=== PATIENT | male | born 1970 | race Caucasian/White ===

== ENCOUNTER 2025-03-06 12:06 | Emergency (ER) | payer OTHER, SELFPAY ==
[2025-03-06 12:09] VITALS: BP 137/100
[2025-03-06 12:42] VITALS: BP 137/96; BMI 30.8
[2025-03-06 12:56] LABS: % Basophils 0.4 % (0-2); % Immature Granulocytes 0.2 % (0-0.5); % Lymphocytes 34.1 % (20.5-51.1); % Monocytes 10.1 % (1.7-9.3); % Neutrophils 53.2 % (42.2-75.2); Absolute Eosinophils 0.1 10^3/uL (0-0.7); Absolute Lymphocytes 1.8 10^3/uL (1.2-3.4); Absolute Monocytes 0.5 10^3/uL (0.1-0.6); Absolute Neutrophils 2.9 10^3/uL (1.4-6.5); Hematocrit 46.4 % (39.0-52.0); Hemoglobin 16.1 g/dL (13.0-18.0); Mean Corp Hgb Conc. 34.7 g/dL (33.0-37.0); Mean Corpuscular Hgb 30.3 pg (27.0-31.0); Mean Corpuscular Volume 87.2 fL (80.0-94.0); Mean Platelet Volume 9.1 fL (7.4-10.4); Nucleated Red Blood Cells % 0 % (-); Platelet Count 234 10^3/uL (130-400); Red Blood Cell Count 5.32 10^6/uL (4.70-6.10); Red Cell Dist. Width 12.8 % (11.5-14.5); White Blood Cell Count 5.4 10^3/uL (4.8-10.8)
--- NOTE | 2025-03-06 12:58 | ED.GENMED ---
History of Present Illness
General
Chief Complaint: Abdominal Pain
Source: patient
Exam Limitations: none
Time Seen by Provider: 03/06/25 12:35
Nursing documentation reviewed up to this point in time: agreed with
History of Present Illness
History of Present Illness:
54-year-old male with history of HTN sees is here for trouble moving his bowels. He states he typically has 2-4 daily bowel movements but for the past 5 days, he has not been able to move his bowels unless he takes milk of magnesia and feels like
'there is a big heavy chunk of cheese sitting in my gut.' States his stomach has been gurgling a lot. He denies nausea or vomiting. Denies fever. Has had no problems urinating.
Past History
Past History
ED Past Medical History: HTN
ED Past Surgical History: Appendectomy, Orthopedic (Left knee surgery) and Other (Hernia repair)
Social History
Tobacco: Non-smoker
Alcohol: Occasional
Personal:
Living: with family
Employment: Employed
Family History
Family History: Other (Noncontributory)
Review of Systems
Review of Systems
Allergies reviewed?: Yes
All Other Systems: ROS reviewed and negative except as documented in HPI and ROS
Constitutional: Denies fever
Respiratory: Denies trouble breathing
Cardiac: Denies chest pain
ABD/GI: Reports abdominal pain and other (Having trouble moving his bowels the past 4 days, he states he can only go if he takes milk of magnesia.); Denies nausea, vomiting, bloody stools, black stools or anorexia
: Denies dysuria or difficulty voiding
Musculoskeletal: Reports no symptoms
Skin: Reports no symptoms
Neurological: Reports no symptoms
Phy Exam
Physical Exam
Physical Exam:
GENERAL: No acute distress. A&Ox3.
CONSTITUTIONAL: Afebrile.
EYES: clear, conjunctivae normal
ENMT: moist mucus membranes
RESPIRATORY: Regular respirations, nonlabored, lungs clear.
CARDIOVASCULAR: Regular rate and rhythm, no murmurs, no rubs.
GI: Soft, no significant tenderness, nondistended, normal BS
MUSCULOSKELETAL: Moves with ease. Well perfused.
SKIN: Warm, dry, pink
PSYCH: Normal mood and affect. Well kept, interactive and appropriate
NEUROLOGIC: Awake, alert and oriented. No focal neurological deficits
Course
Orders/Labs/Results
Orders:
Orders
03/06/25 12:45
Complete Blood Count/With Diff Urgent
Comprehensive Metabolic Panel Urgent
Lipase Urgent
03/06/25 12:58
0.9% Sodium Chloride 1000 ml [Nss] 1,000 ml IV BOLUS
03/06/25 13:01
CT Abd/pel Without Iv Or Oral Urgent
Comment:
Reason For Exam: left flank pain
Abnormal Lab Results
03/06/25
12:45
Monocytes % 10.1 H %
(1.7-9.3)
Glucose 111 H mg/dl
(70-99)
Total Bilirubin 1.8 H mg/dl
(0.2-1.3)
ALT 71 H U/L
(0-50)
03/06/25 12:45
03/06/25 12:45
Vital Signs
Initial and Last Documented VS:
Initial Vital Signs
Temp Pulse Resp BP Pulse Ox
98.4 F 95 16 137/100 96
03/06/25 12:09 03/06/25 12:09 03/06/25 12:09 03/06/25 12:09 03/06/25 12:09
Last Documented Vital Signs
Temp Pulse Resp BP Pulse Ox
98.4 F 95 16 126/81 96
03/06/25 12:09 03/06/25 12:09 03/06/25 12:09 03/06/25 15:00 03/06/25 15:30
MDM/Problems Addressed
Differential Diagnosis Includes:
constipation, diverticulitis, obstruction
MDM/Problems Addressed:
54-year-old male with history of HTN sees is here for trouble moving his bowels. He states he typically has 2-4 daily bowel movements but for the past 5 days, he has not been able to move his bowels unless he takes milk of magnesia and feels like
'there is a big heavy chunk of cheese sitting in my gut.' States his stomach has been gurgling a lot. He denies nausea or vomiting. Denies fever. Has had no problems urinating.
Afebrile, NAD
1:50 PM:
CBC normal
CMP mild elevation of bilirubin otherwise normal
CAT scan abdomen pelvis w/o IV or PO contrast radiology report read: IMPRESSION:
No renal, ureteral, or bladder calculus. No obstructive uropathy.
Minor diverticulosis without acute diverticulitis. No bowel obstruction.
No acute inflammatory process within the abdomen or pelvis.
Fatty infiltration of liver.
Results reviewed with pt, copy of CT report given to him
Plan: Reassurance, Recommend colonoscopy, GI f/u
*Critical Care Note
Total Time (30-74mins, 75-104mins- exclusive of procedures): Not Applicable
ED Attending Note
-
Portions of this chart may have been created with voice recognition software.� Occasional wrong word or��sound alike� substitutions may have occurred due to the inherent limitations of voice recognition software.
Discharge Plan
Departure
Patient Disposition: Home (Routine Discharge)
Date of Disposition: 03/06/25
Time of Disposition: 15:13
Patient with high blood pressure during this ER visit?: No
Condition: Good
Discharge Problem:
Abdominal pain
Instructions: Abdominal Pain
Prescriptions:
No Action
ibuprofen 800 MG tablet
800 mg PO Q6HPRN PRN (Reason: fever, aches. take with food.) Qty: 30 0RF
hydrocodone-acetaminophen 1 TABLET tablet
1 tab PO Q4HPRN PRN (Reason: breakthrough pain) Qty: 10 0RF
diclofenac sodium 75 MG tablet,delayed release (DR/EC)
75 mg PO BID Qty: 10 0RF
cyclobenzaprine 10 MG tablet
10 mg PO TIDPRN PRN (Reason: back pain) Qty: 0 0RF
Referrals:
Melecio Saucedo MD [Family Provider] -
Madi Whalen DO [Active] - Next open appointment
Activity Restrictions/Additional Instructions:
As we discussed, nothing worrisome in your workup here today. Specifically your abdominal CAT scan is basically normal other than a fatty liver
No significant stool in the bowel
I recommend that you get a colonoscopy within the next 6 months
Follow-up with the GI doctor call the office Friday morning and make next available appointment
Return here immediately for worsening abdominal pain, vomiting, fever, bloody stools or feeling sicker in any way
Interventions
Interventions:
*Risk Screen - Suicide Last Done: 03/06/25 12:09
*General Assessment Last Done: 03/06/25 12:09
*Neglect/Abuse Screening Last Done: 03/06/25 15:35
*ED- Fall Risk Assessment Last Done: 03/06/25 12:42
*ED COVID-19 Vaccine History Last Done: 03/06/25 12:09
*Nursing Disposition Last Done: 03/06/25 15:35
GO-Uqywnj-Bwldrayofx Assessment Last Done: 03/06/25 12:43
Discharge Date and Time
Discharge Date/Time: 03/06/25 15:42
Print Language: PORTUGUESE
[2025-03-06 13:00] VITALS: BP 127/93
[2025-03-06] MEDS: NSS 1000 IV (13:07)
[2025-03-06 13:12] LABS: ALT (SGPT) 71 U/L (0-50); AST (SGOT) 39 U/L (17-59); Albumin 4.5 g/dl (3.5-5.0); Alkaline Phosphatase 76 U/L (38-126); Blood Urea Nitrogen 17 mg/dl (9-20); Calcium 9.4 mg/dl (8.4-10.2); Carbon Dioxide 27 mmol/L (22-30); Chloride 106 mmol/L (98-107); Estimated Creatinine Clearance 100 ml/min; Glucose 111 mg/dl (70-99); Potassium 4.4 mmol/L (3.5-5.1); Sodium 141 mmol/L (135-145); Total Bilirubin 1.8 mg/dl (0.2-1.3); Total Protein 6.9 g/dl (6.3-8.2); eGFR > 60.00
[2025-03-06 13:20] LABS: Lipase 76 U/L (23-300)
[2025-03-06 14:21] VITALS: BP 133/88
[2025-03-06 15:00] VITALS: BP 126/81
== END 2025-03-06 15:42 | disposition home or self-care (01) ==
LOC: EMR 12:06
PROVIDERS: Registered Nurse; EMERGENCY PHYSICIAN Emergency Medicine; FAMILY PHYSICIAN Family Medicine
DX: R10.9 Unspecified abdominal pain (principal); I10 Essential (primary) hypertension; K76.0 Fatty (change of) liver, not elsewhere classified; Z90.49 Acquired absence of other specified parts of digestive tract
CPT/HCPCS: 99284; 96360; 74176; 80053; 83690; 85025

== ENCOUNTER 2025-09-05 06:15 | Day surgery (SDC) | payer OTHER, SELFPAY | END 2025-09-05 08:40 | disposition home or self-care (01) | LOC: GI 06:15 | PROVIDERS: ATTENDING PHYSICIAN Internal Medicine | DX: Z12.11 Encounter for screening for malignant neoplasm of colon (principal); K57.30 Diverticulosis of large intestine without perforation or abscess without bleeding; D12.5 Benign neoplasm of sigmoid colon; D12.3 Benign neoplasm of transverse colon; K62.1 Rectal polyp; Z80.0 Family history of malignant neoplasm of digestive organs | CPT/HCPCS: 45385; 45380; 88305 ==